=== PATIENT | male | born 1985 | race Caucasian/White ===

== ENCOUNTER 2016-11-15 17:08 | Emergency (ER) | payer OTHER ==
[~2016-11-15] VITALS: Ht 185.4 cm; Wt 77.1 kg
[~2016-11-15 17:08] MED LIST: HYDROCODONE-APA1 TA1 PO; LITHIUM CARBON300 M3 PO; LUNESTA2 MG PO; NAPROSYN500 MG PO; ROBAXIN500 MG PO; SERTRALINE HCL50 MG PO
[2016-11-15] MEDS ORDERED: SEROQUEL 50 MG50 MG PO (17:43)
[2016-11-15] MEDS ORDERED: NORCO 5-325 TA1 EACH PO (17:44)
[2016-11-15] MEDS ORDERED: MEDROLDOSEPACK PO (17:44)
[2016-11-15 18:22] VITALS: BP 122/68
== END 2016-11-15 18:23 | disposition home or self-care (01) ==
LOC: ER 17:08
DX: M54.12 Radiculopathy, cervical region (principal); G89.29 Other chronic pain; Z88.1 Allergy status to other antibiotic agents; Z88.8 Allergy status to other drugs, medicaments and biological substances; F17.210 Nicotine dependence, cigarettes, uncomplicated

== ENCOUNTER 2017-02-20 08:22 | Emergency (ER) | payer OTHER ==
[~2017-02-20] VITALS: Ht 185.4 cm; Wt 74.8 kg
[~2017-02-20 08:22] MED LIST changes: +ANUSOL-HC25 MG RECTAL; +MEDROLDOSEPACK PO; +NORCO 5-325 TA1 EACH PO; +SEROQUEL 50 MG50 MG PO
[2017-02-20] MEDS ORDERED: INVEGA TRI IM (08:29)
[2017-02-20 08:39] LABS: ABSOLUTE NEUTROPHILS 9.1 thou/uL (1.4-8.2); BASOPHILS 0.4 % (0.0-2.0); EOSINOPHILS 0.7 % (0.0-3.0); HEMATOCRIT 50.2 % (42.0-52.0); HEMOGLOBIN 17.6 gm/dL (14.0-18.0); LYMPHOCYTES 13.1 % (24.0-44.0); MCH 30.8 pg (26.0-34.0); MCHC 35.1 g/dL (28.0-37.0); MONOCYTES 2.9 % (1.0-8.0); PLATELET COUNT 306 thou/uL (150-400); POLYS 82.9 % (36.0-66.0); RDW 13.5 % (10.5-14.5); WBC 10.9 thou/uL (4.0-11.0)
[2017-02-20 08:40] LABS: MANUAL DIFF NO
[2017-02-20 08:47] LABS: CALCIUM 10.1 mg/dL (8.5-10.1); CREATININE 1.4 mg/dL (0.7-1.3); POTASSIUM 3.8 mmol/L (3.5-5.1)
[2017-02-20 08:53] LABS: ALBUMIN 4.5 g/dL (3.4-5.0); DIRECT BILIRUBIN 0.2 mg/dL (<0.1-0.3); TOTAL BILIRUBIN 0.7 mg/dL (<0.1-1.0); TOTAL PROTEIN 7.9 g/dL (6.4-8.2)
[2017-02-20 09:04] LABS: URINE BILIRUBIN 1+ (Negative); URINE BLOOD NEGATIVE (Negative); URINE GLUCOSE-RANDOM* NEGATIVE (Negative); URINE KETONES TRACE (Negative); URINE NITRITE NEGATIVE (Negative); URINE PROTEIN (DIPSTICK) TRACE (Negative); URINE UROBILINOGEN 0.2 E.U./dl (0.2-1.0)
[2017-02-20 09:09] LABS: ICTOTEST (BILI CONFIRMATORY) Negative (Negative); URINE COLOR DARK YELLOW
[2017-02-20] MEDS ORDERED: ZOFRAN ODT4 MG PO (09:49)
[2017-02-20] MEDS ORDERED: PHENERGAN 25 MG25 M1 PO (09:49)
[2017-02-20 10:17] VITALS: BP 115/83
== END 2017-02-20 10:10 | disposition home or self-care (01) ==
LOC: ER 08:22
PROVIDERS: Emergency Medicine
DX: R11.2 Nausea with vomiting, unspecified (principal); R10.84 Generalized abdominal pain; F17.210 Nicotine dependence, cigarettes, uncomplicated; F10.99 Alcohol use, unspecified with unspecified alcohol-induced disorder; Z88.1 Allergy status to other antibiotic agents; Z88.8 Allergy status to other drugs, medicaments and biological substances

== ENCOUNTER 2017-06-25 13:22 | Emergency (ER) | payer OTHER ==
[~2017-06-25] VITALS: Ht 185.4 cm; Wt 77.1 kg
[~2017-06-25 13:22] MED LIST changes: +INVEGA TRI IM; +PHENERGAN 25 MG25 M1 PO; +ZOFRAN ODT4 MG PO
[2017-06-25] MEDS ORDERED: NEURONTIN600 MG PO (13:26)
[2017-06-25] MEDS ORDERED: DOXYCYCLINE 10100 MG PO (14:32)
== END 2017-06-25 14:41 | disposition home or self-care (01) ==
LOC: ER 13:22
DX: J02.9 Acute pharyngitis, unspecified (principal); M54.2 Cervicalgia; F10.99 Alcohol use, unspecified with unspecified alcohol-induced disorder; F17.210 Nicotine dependence, cigarettes, uncomplicated; Z88.1 Allergy status to other antibiotic agents; Z88.8 Allergy status to other drugs, medicaments and biological substances

== ENCOUNTER 2017-08-09 08:34 | Emergency (ER) | payer OTHER ==
[~2017-08-09] VITALS: Ht 185.4 cm; Wt 77.1 kg
[~2017-08-09 08:34] MED LIST changes: +DOXYCYCLINE 10100 MG PO; +NEURONTIN600 MG PO
[2017-08-09] MEDS ORDERED: MOBIC15 MG PO (09:41)
== END 2017-08-09 09:40 | disposition home or self-care (01) ==
LOC: ER 08:34
DX: M25.531 Pain in right wrist (principal); M25.532 Pain in left wrist; F17.210 Nicotine dependence, cigarettes, uncomplicated; Z88.1 Allergy status to other antibiotic agents; Z88.8 Allergy status to other drugs, medicaments and biological substances; W10.8XXA Fall (on) (from) other stairs and steps, initial encounter; Y93.89 Activity, other specified; Y92.89 Other specified places as the place of occurrence of the external cause; Y99.8 Other external cause status

== ENCOUNTER 2017-10-10 15:10 | Emergency (ER) | payer OTHER ==
[~2017-10-10] VITALS: Ht 185.4 cm; Wt 79.4 kg
[~2017-10-10 15:10] MED LIST changes: +MOBIC15 MG PO
[2017-10-10 15:23] VITALS: BP 127/81
[2017-10-10] MEDS ORDERED: HYDROCODONE-AP1 EAC6 PO (15:56)
[2017-10-10] MEDS ORDERED: CLEOCIN HCL150 MG PO (15:56)
== END 2017-10-10 16:13 | disposition home or self-care (01) ==
LOC: ER 15:10
DX: K08.89 Other specified disorders of teeth and supporting structures (principal); F17.210 Nicotine dependence, cigarettes, uncomplicated; Z88.1 Allergy status to other antibiotic agents; Z88.8 Allergy status to other drugs, medicaments and biological substances

== ENCOUNTER 2017-10-21 20:20 | Emergency (ER) | payer OTHER ==
[~2017-10-21] VITALS: Ht 182.9 cm; Wt 79.4 kg
[~2017-10-21 20:20] MED LIST changes: +CLEOCIN HCL150 MG PO; +HYDROCODONE-AP1 EAC6 PO
[2017-10-21 20:26] VITALS: BP 131/89
[2017-10-21] MEDS ORDERED: HYDROCODONE-AP1 EAC6 PO (21:00)
[2017-10-21] MEDS ORDERED: CLEOCIN HCL150 MG PO (21:00)
== END 2017-10-21 21:14 | disposition home or self-care (01) ==
LOC: ER 20:20
DX: Z53.21 Procedure and treatment not carried out due to patient leaving prior to being seen by health care provider (principal)

== ENCOUNTER 2017-11-13 00:07 | Emergency (ER) | payer OTHER ==
[~2017-11-13] VITALS: Ht 185.4 cm; Wt 79.4 kg
[2017-11-13] MEDS ORDERED: DOXYCYCLINE 10100 MG PO (00:41)
[2017-11-13 01:22] VITALS: BP 132/76
== END 2017-11-13 01:20 | disposition home or self-care (01) ==
LOC: ER 00:07
DX: L03.116 Cellulitis of left lower limb (principal); F17.210 Nicotine dependence, cigarettes, uncomplicated; Z88.8 Allergy status to other drugs, medicaments and biological substances; Z88.1 Allergy status to other antibiotic agents; W56.51XA Bitten by other fish, initial encounter; Y93.89 Activity, other specified; Y92.89 Other specified places as the place of occurrence of the external cause; Y99.8 Other external cause status